=== PATIENT | male | born 1965 | race Caucasian/White ===

== ENCOUNTER 2021-12-01 14:44 | Emergency (ER) | payer OTHER, SELFPAY ==
[2021-12-01 15:32] VITALS: BP 176/89; PULSE 67; RESP 20; TEMP 36.7; O2SAT 99; BMI 50.1
--- NOTE | 2021-12-01 16:56 | ED_ITS ---
HPI - General Adult General Chief complaint: General Medical Stated complaint: high bp Time Seen by Provider: 12/01/21 16:56 Source: patient Mode of arrival: ambulatory Limitations: no limitations History of Present Illness HPI narrative: Patient is a 56 year old male presenting to the emergency department today with high blood pressure. Patient states that he was set to get an oral surgery today, multiple teeth extracted, when they informed him his blood pressure was 200/100. Patient states that he sat there for a little while and his blood pressure went down to 180/100. Patient states the does have a history of high blood pressure for which he takes 25mg of Losartan. Patient states that he has been very short staffed at work and has been under an incredible amount of stress. 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 Patient denies any dizziness, lightheadedness, abdominal pain, nausea, vomiting, fever, chills, blurry vision, double vision, loss of vision, chest pain, difficulty breathing, shortness of breath, back pain, night sweats, pain with urination, increased urinary frequency, increased urinary urgency, blood in his urine or stool, syncope or a near syncopal episode, recent trauma or falls, bowel incontinence, bladder incontinence, bowel retention, bladder retention, or any other complaints at this time. MD complaint: Hypertension Onset (ago): year(s) Relieving factors: none Exacerbating factors: other (stress) Associated symptoms: denies other symptoms Related Data Allergies Allergy/AdvReac Type Severity Reaction Status Date / Time bee pollen [BEE STINGS] Allergy Unknown SWELLING Unverified 07/21/20 15:02 Penicillins Allergy Unknown RASH Unverified 07/21/20 15:02 [PENICILLINS] Review of Systems Verdana 4l Constitutional: Verdana 4d Verdana 4d Constitutional: Verdana 4d Reports no additional constitutional complaints, Denies chills, Denies fever(s) and Denies night sweats Verdana 4l Eyes: Verdana 4d Verdana 4d Eyes: Verdana 4d Reports no additional eye complaints, Denies blurry vision, Denies change in vision, Denies diplopia, Denies eye discharge, Denies loss of vision and Denies eye pain Verdana 4l ENT: Verdana 4d Denies dizziness Verdana 4l Cardiovascular: Verdana 4d Verdana 4d Cardiovascular: Verdana 4d Reports no additional cardiovascular complaints, Denies chest pain, Denies lightheadedness, Denies Loss of Consciousness and Denies dyspnea Verdana 4l Respiratory: Verdana 4d Verdana 4d Respiratory: Verdana 4d Reports no additional respiratory complaints and Denies dyspnea Verdana 4l Gastrointestinal: Verdana 4d Verdana 4d Gastrointestinal: Verdana 4d Reports no additional gastrointestinal complaints, Denies abdominal pain, Denies melena, Denies hematochezia, Denies change in bowel habits and Denies change in stool character Verdana 4l Genitourinary: Verdana 4d Verdana 4d Genitourinary: Verdana 4d Reports no additional male genitourinary complaints, Denies hematuria, Denies oliguria, Denies difficulty urinating, Denies dysuria, Denies urinary frequency, Denies urinary hesitancy, Denies urinary incontinenceincontinence and Denies urinary urgency Musculoskeletal: Musculoskeletal: Reports no additional musculoskeletal complaints, Denies nu mbness and Denies tingling Neurologic: Denies dizziness, Denies loss of vision, Denies numbness and Denies tingling Psychiatric: Psychiatric: Reports no additional psychiatric complaints Endocrine: Endocrine: Reports no additional endocrine complaints Hematologic/Lymphatic: Hematologic/Lymphatic: Reports no additional hematologic/lymphatic complaints Allergic/Immunologic: Allergic/Immunologic: Reports no additional allergic/immunologic complaints PMFSH Past Medical History Attestation statement: The following information was validated with the patient. Source: old records reviewed Social History Social History Advance Directives: No Advance Directives Information Provided: No Physical Exam Verdana 4l Vital Signs: Verdana 4d Verdana 4d Vital Signs: Verdana 4d Verdana 4Bd Last Vital Signs Verdana 4d Glass Sagger New 4d Glass Sagger New 4d Temp 98.3 F 12/01/21 17:43 Glass Sagger New 4d Pulse 61 12/01/21 17:43 Glass Sagger New 4d Resp 18 12/01/21 17:43 BP 180/87 H 12/01/21 17:43 Pulse Ox 100 12/01/21 17:43 BMI result Body Mass Index 50.1 Const: General: cooperative, no acute distress, alert and awake Nutritional Appearance: well nourished Orientation/consciousness: patient oriented x3 Limitations: no limitations HENMT: Head: Yes normal to inspection and Yes atraumatic Ears: hearing grossly normal bilaterally and external ears normal General nose exam: Normal external nose present, no nasal discharge noted and no epistaxis Face and sinus: Yes normal facial exam, No abrasion and No laceration Mouth: Normal oral and palatal mucosa present, no drooling and no muffled voice Eyes: General: appearance normal, both eyes and all related structures Periorbital: periorbital findings normal Eyelids: Yes eyelids normal Conjunctivae: conj unctivae normal Pupils: Equal, round and reactive pupils present EOM: EOMs intact bilaterally Neck: Neck: Yes normal visual inspection, Yes full ROM and Yes no lymphadenopathy Chest: Chest palpation & inspection: normal inspection of the chest Resp: Effort & Inspection: normal respiratory effort and able to speak in complete sentences Auscultation: clear to auscultation bilaterally Cardio: Rate: regular rate Rhythm: regular rhythm GI: Inspection: Yes normal to inspection Neuro: General: patient oriented x3 and moves all extremities Cranial nerves: Yes Equal, round and reactive pupils present Cognition (Neuro): normal cognition Motor exam (neuro): 5/5 motor strength present throughout Sensory Exam: Normal double simultaneous stimulation for sensation Coordination: [id number] test normal Extrem: General: Yes normal to inspection, Yes full ROM and Yes capillary refill normal Psych: Appearance: grossly normal Mental Status: mental status grossly normal Affect: normal affect Attitude: cooperative Thought process: Normal thought process present Thought content: Normal thought content present Insight: Good insight present (Psych) Medical Decision Making [facility] Narrative Medical decision making narrative: Patient is a 56 year old male presenting to the emergency department today with hypertension. Patient's physical exam was unremarkable. Patient's blood work was unremarkable. Patient's urine showed no acute process. Patient's EKG was unremarkable. I explained my physical exam findings as well as all test results to the patient. I answered all questions asked by the patient. I stressed the importance of the patient taking his medication as prescribed. I stressed the importance of the patient following up with his primary care provider. I stressed the importance of the patient keeping a blood pressure diary. I stressed the importance of the patient returning to the emergency department immediately if his symptoms were to worsen or if he were to develop any dizziness, shortness of breath, difficulty breathing, chest pain, blurry vision, loss of vision, nausea, vomiting, abdominal pain, fever, chills, back pain, or any other complaints. Patient verbalized agreement and understanding with this treatment plan and discharge. Differential Diagnosis Differential Diagnosis: hypertension, anxiety, medical examination Medical Records Medical records reviewed: Yes I reviewed the patient's medical records. Lab Data Lab results reviewed: Yes I reviewed the patient's lab results. Result diagrams: 12/01/21 17:41 12/01/21 17:41 Labs: Lab Results 12/01/21 12/01/21 12/01/21 Range/Units 17:41 17:41 17:41 WBC 9.5 (4.8-10.8) X10*3/uL RBC 5.37 (4.60-5.80) X10*6/uL Hgb 16.1 (14.0-18.0) g/dl Hct 48.6 (42.0-52.0) % MCV 90.5 (80.0-98.0) fL MCH 30.0 (27.0-33.0) pg MCHC 33.1 (31.0-36.0) g/dl RDW 13.2 (11.0-16.0) % Plt Count 257 (160-400) X10*3/uL MPV 10.1 (9.4-12.4) fL Immature Gran % (Auto) 0.3 (0.0-0.4) % Neut % (Auto) 72.0 (45-73) % Lymph % (Auto) 15.0 L (20-40) % [place] % (Auto) 10.5 (2-11) % Eos % (Auto) 1.6 (0-4) % Baso % (Auto) 0.6 (0-2) % Lymph # (Auto) 1.4 (1.2-4.9) X10*3/uL [place] # (Auto) 1.0 (0.1-1.2) X10*3/uL Eos # (Auto) 0.2 (0.0-0.4) X10*3/uL Baso # (Auto) 0.1 (0.0-0.2) X10*3/uL Abs Immat Gran (auto) 0.03 (0.00-0.03) X10*3/uL Absolute Neuts (auto) 6.8 (2.0-8.3) x10*3/uL Absolute Nucleated RBC 0.000 (0.0-0.012) X10*3/uL Nucleated RBC % (auto) 0.0 (0.0-0.2) /100WBC Sodium 138 (135-145) mmol/L Potassium 3.8 (3.3-5.1) mmol/L Chloride 100 (96-108) mmol/L Carbon Dioxide 32 H (22-29) mmol/L Anion Gap 10 L (12-20) BUN 16 (9-16) mg/dL Creatinine 0.97 (0.5-1.4) mg/dL Estim Creat Clear Calc 146.1 Estimated GFR > 60 Fasting Glucose 85 (60-99) mg/dL Calcium 10.0 (8.4-10.2) mg/dL Magnesium 2.4 (1.6-2.6) mg/dL Total Bilirubin 0.9 (0.0-1.0) mg/dL AST 26 (5-37) U/L ALT 36 (0-40) U/L Alkaline Phosphatase 67 (39-117) U/L Total Protein 8.2 H (6.5-8.0) g/dL Albumin 4.3 (3.5-5.0) g/dL Urine Color YELLOW Urine Appearance CLEAR Urine pH 6.0 (5.0-8.0) Ur Specific [place] 1.020 (1.005-1.025) Urine Protein NEG (NEG-TRACE) MG/DL Urine Glucose (UA) NEG (NEG) MG/DL Urine Ketones NEG (NEG) MG/DL Urine Blood NEG (NEG) Urine Nitrite NEG (NEG) Ur Leukocyte Esterase NEG (NEG) Discharge Plan Discharge Clinical Impression: Hypertension Patient Disposition: Home, Self-Care Instructions: Hypertension (ED) Additional Instructions: Call to discuss finding and establishing with a primary care provider. Stand Alone Forms: Work/School Release Interventions: ED Discharge Assessment Last Done: 12/01/21 18:24 Discharge Date/Time: 12/01/21 18:28 Print Language: Arabic
--- NOTE | 2021-12-01 17:20 | ECG_ITS ---
Test Reason : HTN Blood Pressure : / mmHG Vent. Rate : 061 BPM Atrial Rate : 061 BPM P-R Int : 200 ms QRS Dur : 110 ms QT Int : 418 ms P-R-T Axes : 027 -26 013 degrees QTc Int : 420 ms Normal sinus rhythm Minimal voltage criteria for LVH, may be normal variant ( R in aVL ) Borderline ECG No previous ECGs available Referred By: Deloris Srivastava Electronically Signed By:MICHELL MORA MD
[2021-12-01 17:43] VITALS: BP 180/87; PULSE 61; RESP 18; TEMP 36.8; O2SAT 100
[2021-12-01 17:47] LABS: MANUAL DIFF FLAG NO
[2021-12-01 17:48] LABS: Basophils Absolute Auto 0.1 X10*3/uL (0.0-0.2); Basophils Percent Auto 0.6 % (0-2); Eosinophils Absolute Auto 0.2 X10*3/uL (0.0-0.4); Eosinophils Percent Auto 1.6 % (0-4); Hematocrit 48.6 % (42.0-52.0); Hemoglobin 16.1 g/dl (14.0-18.0); Imm Gran Abs Auto 0.03 X10*3/uL (0.00-0.03); Imm Gran Pct Auto 0.3 % (0.0-0.4); Lymphocytes Absolute Auto 1.4 X10*3/uL (1.2-4.9); Mean Corpuscular HGB Conc 33.1 g/dl (31.0-36.0); Mean Corpuscular Volume 90.5 fL (80.0-98.0); Mean Platelet Volume 10.1 fL (9.4-12.4); Monocytes Percent Auto 10.5 % (2-11); Neutrophils Absolute Auto 6.8 x10*3/uL (2.0-8.3); Platelet Count 257 X10*3/uL (160-400); Red Blood Count 5.37 X10*6/uL (4.60-5.80); Red Cell Distribution Width 13.2 % (11.0-16.0); White Blood Count 9.5 X10*3/uL (4.8-10.8)
[2021-12-01 17:49] LABS: Appearance Urine CLEAR; Color Urine YELLOW; Glucose Urine UA NEG (NEG); Leukocyte Esterase Urine NEG (NEG); Nitrite Urine NEG (NEG); Urine Blood NEG (NEG); Urine Ketones NEG (NEG); Urine Protein NEG (NEG-TRACE)
[2021-12-01 18:07] LABS: Alanine Aminotransferase 36 U/L (0-40); Albumin Level 4.3 g/dL (3.5-5.0); Alkaline Phosphatase 67 U/L (39-117); Anion Gap 10 (12-20); Aspartate Amino Transferase 26 U/L (5-37); Bilirubin Total 0.9 mg/dL (0.0-1.0); Blood Urea Nitrogen 16 mg/dL (9-16); Carbon Dioxide 32 mmol/L (22-29); Chloride 100 mmol/L (96-108); Creatinine Clr Calc Pharmacy 146.1; Estimated Glomerular Filt Rate > 60; Glucose Fasting 85 mg/dL (60-99); Magnesium 2.4 mg/dL (1.6-2.6); Potassium 3.8 mmol/L (3.3-5.1); Sodium 138 mmol/L (135-145); Total Protein 8.2 g/dL (6.5-8.0)
== END 2021-12-01 18:28 | disposition home or self-care (01) ==
PROVIDERS: Physician Assistant Medical; Emergency Provider Emergency Medicine Emergency Medical Services
DX: I10 Essential (primary) hypertension (principal); Z79.899 Other long term (current) drug therapy
CPT/HCPCS: 36415; 80053; 81003; 83735; 85025; 93005; 99283

== ENCOUNTER 2022-03-20 09:28 | Emergency (ER) | payer BC, SELFPAY ==
--- NOTE | ~2022-03-20 | XR_ITS ---
EXAMINATION: XR CHEST CLINICAL INFORMATION: Cough. Difficulty breathing COMPARISON: None TECHNIQUE: Frontal view of the chest was obtained. FINDINGS: Patient is rotated. Study is lordotic. The lungs however do appear to be grossly clear. Heart and pulmonary vessels are normal. XR/XR chest 1V IMPRESSION: No active disease.
[2022-03-20 10:00] VITALS: BP 163/73; PULSE 76; RESP 20; TEMP 37; O2SAT 95; BMI 48.1
[2022-03-20 10:05] VITALS: O2SAT 95
--- NOTE | 2022-03-20 10:15 | PC.NURSE ---
pt alert and oriented, skin pwd, respirations even and unlabored, ls clear, pt reports feeling sob that started this morning but not feeling well since Saturday, body aches/cough son tested positive for covid on Saturday
--- NOTE | 2022-03-20 10:26 | ED.URI ---
HPI - URI/Sore Throat General Chief Complaint: Upper Respiratory Symptoms Stated Complaint: cough diff breathing Time Seen by Provider: 03/20/22 10:08 Source: patient Mode of arrival: ambulatory Limitations: no limitations History of Present Illness HPI Narrative: this is 57 years old male presented to the ED with a chief complain of cough or congestion. Denies any fever any chills. Symptoms have been present for about 5 days MD elicited complaint: cough Pertinent past history: pneumonia Onset (ago): day(s) (5) Consistency: constant Severity: moderate Description of mucous: clear and yellow Exacerbating factors: nothing Relieving factors: nothing Associated symptoms: denies other symptoms Related Data Previous Rx's Medication Instructions Recorded doxycycline monohydrate 100 mg 100 mg PO BID #14 cap 03/20/22 capsule Allergies Allergy/AdvReac Type Severity Reaction Status Date / Time bee pollen [BEE STINGS] Allergy Unknown SWELLING Unverified 07/21/20 15:02 Penicillins [PENICILLINS] Allergy Unknown RASH Unverified 07/21/20 15:02 Review of Systems Review of Systems: Yes all other systems are reviewed and are negative Constitutional: Constitutional: Reports no additional constitutional complaints ENT: Reports system reviewed and no additional complaints, except as documented Cardiovascular: Cardiovascular: Reports no additional cardiovascular complaints Respiratory: Respiratory: Reports no additional respiratory complaints and Reports cough Gastrointestinal: Gastrointestinal: Denies vomiting and Denies hematemesis Neurologic: Reports system reviewed and no additional complaints, except as documented PMFSH Social History Social History Patient Tobacco Use Status: Former Tobacco user Use of substances other than those prescribed or required for medical reasons: No Advance Directives: No Advance Directives Information Provided: No Physical Exam Vital Signs: Vital Signs: Last Vital Signs Temp 98.6 F 03/20/22 10:00 Pulse 76 03/20/22 10:00 Resp 20 03/20/22 10:00 BP 163/73 H 03/20/22 10:00 Pulse Ox 95 03/20/22 10:05 BMI result Body Mass Index 48.1 Const: General: cooperative and comfortable Nutritional Appearance: average body habitus and well nourished Orientation/consciousness: patient oriented x3 Limitations: no limitations HEENT: Head: Yes normal to inspection and Yes normocephalic Ears: hearing grossly normal bilaterally General nose exam: Normal external nose present Face and sinus: Yes normal facial exam Mouth: Normal oral and palatal mucosa present Throat: Yes posterior oropharynx normal Neck: Neck: Yes normal visual inspection, Yes full ROM and Yes no lymphadenopathy Chest: Chest palpation & inspection: normal inspection of the chest Resp: Effort & Inspection: normal respiratory effort Auscultation: rhonchi Cardio: Jugular venous distension: no JVD Rate: regular rate Rhythm: regular rhythm GI: Inspection: Yes normal to inspection Palpation (GI): Soft to palpation, not firm, nontender and no guarding Skin: General skin exam: no rashes or lesions noted Lesions: no lesions Rashes: no rashes Neuro: General: patient oriented x3 Extrem: General: Yes normal to inspection, Yes full ROM and Yes capillary refill normal Course Reevaluation(s) Reevaluation #1: is doing better chest x-ray is negative his O2 sat is 95%, he is afebrile and nontoxic appearing, he can be discharged home with follow-up with PCP MDM - URI/Sore Throat Lab Data Labs: Lab Results 03/20/22 Range/Units 10:20 Influenza Type A (PCR) NEGATIVE (Negative) Influenza Type B (PCR) NEGATIVE (Negative) RSV RNA Qual (PCR) NEGATIVE (Negative) SARS-CoV-2 RNA (RT-PCR) NEGATIVE (Negative) Imaging Data Chest x-ray: Radiologist's impression: EXAMINATION: XR CHEST CLINICAL INFORMATION: Cough. Difficulty breathing COMPARISON: None TECHNIQUE: Frontal view of the chest was obtained. FINDINGS: Patient is rotated. Study is lordotic. The lungs however do appear to be grossly clear. Heart and pulmonary vessels are normal. XR/XR chest 1V IMPRESSION: No active disease. ? Discharge Plan Discharge Clinical Impression: Upper respiratory infection, Bronchitis Patient Disposition: Home, Self-Care Instructions: Acute Bronchitis (ED) Prescriptions: New doxycycline monohydrate 100 mg capsule 100 mg PO BID Qty: 14 0RF Referrals: Jaqueline Bruce FNP [Primary Care Provider] - 2 days Stand Alone Forms: Work/School Release
[2022-03-20 11:02] LABS: Influenza A PCR NEGATIVE (Negative); Influenza B PCR NEGATIVE (Negative); Resp Syncy Virus RNA Qual PCR NEGATIVE (Negative); SARS COV2 PCR INHOUSE NEGATIVE (Negative)
== END 2022-03-20 12:52 | disposition home or self-care (01) ==
PROVIDERS: Emergency Provider Emergency Medicine; PCP Nurse Practitioner Family
DX: J40 Bronchitis, not specified as acute or chronic (principal); J06.9 Acute upper respiratory infection, unspecified; R05.9 Cough, unspecified; R06.02 Shortness of breath; Z20.822 Contact with and (suspected) exposure to COVID-19; Z79.899 Other long term (current) drug therapy
CPT/HCPCS: 0241U; 71045; 99283; 99284

== ENCOUNTER 2025-02-19 13:42 | Emergency (ER) | payer BC, SELFPAY ==
[2025-02-19 13:45] VITALS: BP 182/72; PULSE 64; RESP 20; TEMP 35.7; O2SAT 96; BMI 35.7
--- NOTE | 2025-02-19 13:46 | ED.GENADULT ---
HPI - General Adult General Chief complaint: Dizziness Stated complaint: dizzy lightheaded unable to find pulse Time Seen by Provider: 02/19/25 14:55 Source: patient Mode of arrival: ambulatory Limitations: no limitations History of Present Illness ED Provider: grace sanford np HPI narrative: Patient is a 60-year-old male who presents to the emergency department for evaluation. He states that he was in [place] about 1 month ago when he experienced an episode of dizziness. He states that it lasted about an hour. He contacted his primary care doctor's office and spoke with the nurse there who was advised that he should seek evaluation. If symptoms resolve therefore he did not seek evaluation then. He reports that he was evaluated by his primary care doctor proximally 2 weeks ago, he states it his blood pressure was low 80/60, and was advised to discontinue his antihypertensive medications including amlodipine, losartan-HCTZ, and propranolol. He had an appointment to follow-up and have a repeat blood pressure check 1 week ago but he unfortunately missed this appointment. He does state that he has had continued episodes of dizziness but this is only ever really experienced when he is bending over. He does state that in October of 2024 he was started on Wegovy for weight loss, states he is typically drinking about 80-100 oz of water daily but only consuming about 500 calories daily, he has lost 70 lb since starting the medication. He admits that today his dizziness thoroughly described as a lightheadedness without room spinning sensation was present while sitting which was a new change for him and he felt more symptomatic than he has previously. He denies associated headache, vision changes, chest pain, shortness of breath, difficulty breathing, nausea, vomiting, abdominal pain, numbness or tingling of the extremities, recent lower extremity redness pain or swelling. Related Data Previous Rx's ?Medication ?Instructions ?Recorded doxycycline monohydrate 100 mg 100 mg PO BID #14 caps 03/20/22 capsule Allergies Allergy/AdvReac Type Severity Reaction Status Date / Time bee pollen [BEE STINGS] Allergy Unknown SWELLING Verified 02/19/25 13:48 Penicillins [PENICILLINS] Allergy Unknown RASH Verified 02/19/25 13:48 Review of Systems Review of Systems: Yes all other systems are reviewed and are negative PMFSH Past Medical History Attestation statement: The following information was validated with the patient. Source: old records reviewed Social History Social History Patient Tobacco Use Status: Former Tobacco user Advance Directives: No Advance Directives Information Provided: Yes Do you have a plan to hurt others: No Plan Physical Exam ED Vital Signs: Vital Signs - 24 hr 02/19/25 13:45 02/19/25 16:11 02/19/25 16:12 Temperature 96.3 F L Pulse Rate 64 64 67 Respiratory Rate 20 Blood Pressure 182/72 H 137/81 126/76 Pulse Oximetry 96 Oxygen Delivery Method Room Air 02/19/25 16:12 02/19/25 20:13 02/19/25 22:19 Temperature 97.3 F 98.3 F Pulse Rate 95 59 63 Respiratory Rate 16 16 Blood Pressure 119/74 156/77 H 137/77 Pulse Oximetry 98 100 Oxygen Delivery Method Room Air Room Air BMI result Body Mass Index 35.7 Appearance: Alert.?Oriented to person, place and time. No acute distress.?Normal affect. Head: Normocephalic, atraumatic. No head, sinus or TMJ tenderness.? Eyes: Sclera white, conjunctiva pink. PERRL, 3 mm bilaterally. Visual urbina full to confrontation, EOMi.?No Nystagmus. Ears: Bilateral ear canals clear, TM visible with good cone of light.? Nose: Nasal mucosa pink and moist with midline septum, nares patent bilaterally.? Mouth/ Throat: Oral mucosa pink and moist without lesions. Pharynx normal Neck: Normal inspection.? Neck supple.?? CVS: Heart sounds normal. Normal heart rate and rhythm.? Pulses normal.?? Respiratory: No respiratory distress.? Lung sounds clear to auscultation bilaterally?? Abdomen: Soft and non-tender. Normoactive bowel sounds. No pulsatile mass.?? Skin: Skin warm and dry.? Normal skin color.? Normal skin turgor.?? Extremities: No lower extremity edema. Neuro: No focal neurological deficit observed, CN II-XII intact, normal sensory observed, normal coordination observed. Level of consciousness: Appropriate for age. Motor strength: right upper extremity 5 /5, left upper extremity 5 /5, right lower extremity 5 /5, left lower extremity 5 /5.?Speech: Normal, Gait: Normal, Znfhye-qi-fbrp test: Normal, Ezhu-au-rbco test: Normal. Ambulates with normal steady gait. Course Course Course Narrative: This is a Rapid Medical Examination (RME) performed by Latisha Anderson PA-C in triage. Full HPI, ROS, assessment and treatment plan per primary provider in the Main ED. Hx: 60 yo male hx HTN reports feeling light headed (no room spinning sensation) x1 mo. symptoms began while in [place] 1 mo ago. self discontinued BP meds for around 1 mo while there (amlodipine, losartan-hctz, propranolol). admits to flight to [place]. dizziness present on sitting to standing. no nv, chest pain, MORGAN, vision changes. PE/vitals: well appearing, ambulating w/ steady gait Plan: labs, trop, ekg, ortho vitals Reevaluation(s) Reevaluation #1: CBC is without leukocytosis, anemia, or thrombocytopenia. EKG reveals a sinus rhythm with first-degree AV block; WENDI 212 MS, ventricular rate of 67, QTC 445, no ST-elevation. D-dimer of 157, below VTE cutoff of 230, given there is no associated chest pain, shortness of breath, tachypnea or hypoxia I have a lower suspicion for pulmonary embolism would defer CT angio of the chest imaging at this time. Chemistries revealing hypokalemia at 2.9, I suspect secondary to lack of dietary intake you received potassium sulfate 40 mEq IV total and 10 mEq increments in addition to potassium chloride 40 mEq p.o., orthostatic vital signs are negative, he will additionally receive 1 L normal saline IV fluid. No evidence of ELENA and serum labs. LFTs unremarkable. High sensitive troponin within normal range. Time: 16:32 Reevaluation #2: Patient signed out to Usman GILES pending repeat chemistries Time: 22:50 Reevaluation #3: Patient's repeat potassium is within normal limits at 3.6, I discussed dietary changes and possible multivitamins. The patient advised to repeat labs with the next 2 weeks. He reports feeling well in his currently asymptomatic, he was stable for discharge Medications Administered Discontinued Medications Generic Name Dose Route Start Last Admin Trade Name Freq PRN Reason Stop Dose Admin Potassium Chloride 10 meq in 100 mls @ 100 mls/hr 02/19/25 16:30 02/19/25 21:44 Potassium Chloride/H20 IV 04/18/25 20:29 Infused Q1H [facility] Infusion Sodium Chloride 1,000 mls @ 999 mls/hr 02/19/25 16:30 02/19/25 19:29 Ns IV 02/19/25 17:30 Infused .Q1H1M [facility] Infusion Potassium Chloride 40 meq 02/19/25 16:29 02/19/25 16:56 Potassium Chloride Packet 20 Meq Packet PO 02/19/25 16:30 40 meq ONCE ONE Administration Medical Decision Making Medical Decision Making [facility] Narrative: Patient is a 60-year-old male with past medical history of hypertension, hyperlipidemia, obesity who presents emergency department for evaluation of dizziness as per HPI. At the time my evaluation he is overall well-appearing, nontoxic, afebrile. He is without tachycardia tachypnea or hypoxia. He is not hypotensive today but rather he arrived to the emergency department quite hypertensive 182/72 though on repeat 2.5 hours later was noted to be 119/74, and again has been off of all of his blood pressure medications for the past 2 weeks as they were discontinued advised PCP secondary to hypotension. Neuro exam with no abnormal findings, no focal neuro deficits, no spontaneous or gaze evoked nystagmus, no ataxia, no diplopia, no dysarthria,no dysphagia, no dysphonia, no dysmetria. Will obtain CBC to evaluate for leukocytosis/ anemia, CMP to evaluate for abnormal electrolytes /abnormal renal function/ abnormal hepatic function, EKG and troponin to evaluate for ischemia/ACS. I have a lower suspicion for acute intracranial pathology, would defer head CT at this time. His symptoms seemed to favor more so vasovagal near-syncope versus potential dehydration/lack of calorie intake. Differential Diagnosis Differential Diagnoses: The differential diagnosis associated with the presentation includes (See narrative above) Admission/Observation Consideration of admission/observation: Escalation of care including admission/observation considered Lab Data [facility] Lab Attestation statement: I reviewed the patient's lab results. (See course narrative) 02/19/25 16:01 02/19/25 22:17 Labs: Lab Results 02/19/25 02/19/25 02/19/25 Range/Units 16:01 22:17 22:29 WBC 7.3 (4.8-10.8) X10*3/uL RBC 4.66 (4.60-5.80) X10*6/uL Hgb 14.3 (14.0-18.0) g/dl Hct 41.0 L (42.0-52.0) % MCV 88.0 (80.0-98.0) fL MCH 30.7 (27.0-33.0) pg MCHC 34.9 (31.0-36.0) g/dl RDW 13.0 (11.0-16.0) % Plt Count 237 (160-400) X10*3/uL MPV 10.5 (9.4-12.4) fL Immature Gran % (Auto) 0.1 (0.0-0.4) % Neut % (Auto) 74.7 H (45-73) % Lymph % (Auto) 12.4 L (20-40) % [place] % (Auto) 11.7 H (2-11) % Eos % (Auto) 0.7 (0-4) % Baso % (Auto) 0.4 (0-2) % Lymph # (Auto) 0.9 L (1.2-4.9) X10*3/uL [place] # (Auto) 0.9 (0.1-1.2) X10*3/uL Eos # (Auto) 0.1 (0.0-0.4) X10*3/uL Baso # (Auto) 0.0 (0.0-0.2) X10*3/uL Abs Immat Gran (auto) 0.01 (0.00-0.03) X10*3/uL Absolute Neuts (auto) 5.4 (2.0-8.3) x10*3/uL Absolute Nucleated RBC 0.000 (0.0-0.012) X10*3/uL Nucleated RBC % (auto) 0.0 (0.0-0.2) /100WBC PT 13.0 H (10.9-12.4) SEC INR 1.1 (0.9-1.1) D-Dimer High Sensitivty 157 NG/ML Sodium 136 136 (135-145) mmol/L Potassium 2.9 L* 3.6 D (3.3-5.1) mmol/L Chloride 98 99 (96-108) mmol/L Carbon Dioxide 28 29 (22-29) mmol/L Anion Gap 13 12 (12-20) BUN 18 H 18 H (9-16) mg/dL Creatinine 1.05 1.00 (0.5-1.4) mg/dL Estim Creat Clear Calc 106.8 112.1 Estimated GFR > 60 > 60 Random Glucose 79 87 (60-115) mg/dL Calcium 9.4 9.2 (8.4-10.2) mg/dL Magnesium 2.2 (1.6-2.6) mg/dL Total Bilirubin 1.2 H (0.0-1.0) mg/dL AST 36 (5-37) U/L ALT 39 (0-40) U/L Alkaline Phosphatase 62 (39-117) U/L Troponin I High Sens 5.7 (<3.5-35.0) ng/L Total Protein 7.3 (6.5-8.0) g/dL Albumin 3.9 (3.5-5.0) g/dL Urine Color Yellow Urine Appearance Clear Urine pH 6.0 (5.0-9.0) Ur Specific [place] 1.015 (1.005-1.025) Urine Protein Negative (Neg-Trace) mg/dL Urine Glucose (UA) Negative (Negative) mg/dL Urine Ketones Negative (Negative) mg/dL Urine Blood Negative (Negative) Urine Nitrite Negative (Negative) Ur Leukocyte Esterase Negative (Negative) Independent Interpretation I performed an independent interpretation of an: EKG (See course narrative) Discharge Plan Discharge Clinical Impression: Acute hypokalemia Patient Disposition: Home, Self-Care Instructions: Hypokalemia (ED) Additional Instructions: Your potassium was low today at 2.9. This is possibly related to decreased appetite and decreased oral intake I recommend that you supplement with multivitamins You should have repeat blood work in the next 2 weeks to check your electrolytes Return for new or worsening symptoms Prescriptions: No Action doxycycline monohydrate 100 mg capsule 100 mg PO BID Qty: 14 0RF Print Language: Maltese
[2025-02-19 16:06] LABS: MANUAL DIFF FLAG NO
[2025-02-19 16:10] LABS: Basophils Percent Auto 0.4 % (0-2); Eosinophils Absolute Auto 0.1 X10*3/uL (0.0-0.4); Eosinophils Percent Auto 0.7 % (0-4); Hemoglobin 14.3 g/dl (14.0-18.0); Imm Gran Abs Auto 0.01 X10*3/uL (0.00-0.03); Imm Gran Pct Auto 0.1 % (0.0-0.4); Lymphocytes Absolute Auto 0.9 X10*3/uL (1.2-4.9); Lymphocytes Percent Auto 12.4 % (20-40); Mean Corpuscular HGB Conc 34.9 g/dl (31.0-36.0); Mean Corpuscular Hemoglobin 30.7 pg (27.0-33.0); Mean Platelet Volume 10.5 fL (9.4-12.4); Monocytes Absolute Auto 0.9 X10*3/uL (0.1-1.2); Monocytes Percent Auto 11.7 % (2-11); Neutrophils Absolute Auto 5.4 x10*3/uL (2.0-8.3); Neutrophils Percent Auto 74.7 % (45-73); Platelet Count 237 X10*3/uL (160-400); Red Blood Count 4.66 X10*6/uL (4.60-5.80); White Blood Count 7.3 X10*3/uL (4.8-10.8)
[2025-02-19 16:11] VITALS: BP 137/81; PULSE 64
[2025-02-19 16:12] VITALS: BP 119/74; BP 126/76; PULSE 67; PULSE 95
[2025-02-19 16:16] LABS: INTERNATIONAL NORM RATIO 1.1 (0.9-1.1)
[2025-02-19 16:18] LABS: D Dimer High Sensitivity 157 NG/ML
[2025-02-19 16:27] LABS: Troponin-I High Sensitivity 5.7 ng/L (<3.5-35.0)
[2025-02-19 16:29] LABS: Alanine Aminotransferase 39 U/L (0-40); Albumin Level 3.9 g/dL (3.5-5.0); Anion Gap 13 (12-20); Aspartate Amino Transferase 36 U/L (5-37); Bilirubin Total 1.2 mg/dL (0.0-1.0); Blood Urea Nitrogen 18 mg/dL (9-16); Calcium 9.4 mg/dL (8.4-10.2); Carbon Dioxide 28 mmol/L (22-29); Chloride 98 mmol/L (96-108); Creatinine Clr Calc Pharmacy 106.8; Estimated Glomerular Filt Rate > 60; Glucose Random 79 mg/dL (60-115); Magnesium 2.2 mg/dL (1.6-2.6); Potassium 2.9 mmol/L (3.3-5.1); Sodium 136 mmol/L (135-145); Total Protein 7.3 g/dL (6.5-8.0)
[2025-02-19] MEDS: 0.9 % Sodium Chloride 1,000 ML 999 ML IV (16:56)
[2025-02-19] MEDS: Potassium Chloride Packet 20 MEQ PACKET 40 MEQ PO (16:56)
[2025-02-19] MEDS: Potassium Chloride/H20 10 MEQ/100 ML PIGGYBACK 100 MEQ IV ×4 (17:07→20:43)
[2025-02-19 18:43] LABS: Alkaline Phosphatase 62 U/L (39-117)
[2025-02-19 20:13] VITALS: BP 156/77; PULSE 59; RESP 16; TEMP 36.3; O2SAT 98
[2025-02-19 22:19] VITALS: BP 137/77; PULSE 63; RESP 16; TEMP 36.8; O2SAT 100
[2025-02-19 22:36] LABS: Appearance Urine Clear; Color Urine Yellow; Glucose Urine UA Negative (Negative); Leukocyte Esterase Urine Negative (Negative); Nitrite Urine Negative (Negative); Specific Gravity - Urine 1.015 (1.005-1.025); Urine Blood Negative (Negative); Urine Ketones Negative (Negative); Urine Protein Negative (Neg-Trace)
[2025-02-19 22:43] LABS: Anion Gap 12 (12-20); Blood Urea Nitrogen 18 mg/dL (9-16); Calcium 9.2 mg/dL (8.4-10.2); Carbon Dioxide 29 mmol/L (22-29); Chloride 99 mmol/L (96-108); Creatinine Clr Calc Pharmacy 112.1; Estimated Glomerular Filt Rate > 60; Glucose Random 87 mg/dL (60-115); Potassium 3.6 mmol/L (3.3-5.1); Sodium 136 mmol/L (135-145)
[2025-02-19 23:09] VITALS: BP 137/77; PULSE 63; RESP 16; TEMP 36.8; O2SAT 100
== END 2025-02-19 23:09 | disposition home or self-care (01) ==
PROVIDERS: Nurse Practitioner Family; Physician Assistant Medical; Emergency Provider Emergency Medicine Emergency Medical Services; PCP Nurse Practitioner Family
DX: E87.6 Hypokalemia (principal); R42 Dizziness and giddiness; R06.02 Shortness of breath; Z79.899 Other long term (current) drug therapy
CPT/HCPCS: 36415; 80048; 80053; 81003; 83735; 84484; 85025; 85379; 85610; 96361; 96365; 96366; 99285; J3480